=== PATIENT | female | born 1990 | race Caucasian/White ===

== ENCOUNTER 2020-10-13 21:18 | Emergency (ER) | payer OTHER ==
[~2020-10-13] VITALS: Ht 165.1 cm; Wt 81.6 kg
[2020-10-13] MEDS ORDERED: diphenhydrAMINE HCL 50 MG/ML VIAL ONE (21:38)
[2020-10-13] MEDS ORDERED: FAMOTIDINE/PF INJ 20 MG/2 ML VIAL IV ONE (21:38)
[2020-10-13] MEDS ORDERED: methylPREDNISolone SOD SUCC 125 MG/2ML VIAL ONE (21:38)
[2020-10-13] MEDS: methylPREDNISolone SOD SUCC 125 MG/2ML VIAL IV ONE (21:55)
[2020-10-13] MEDS: FAMOTIDINE/PF INJ 20 MG/2 ML VIAL IV ONE (21:55)
[2020-10-13] MEDS: diphenhydrAMINE HCL 50 MG/ML VIAL IV ONE (21:55)
[2020-10-13] MEDS ORDERED: EPIN0.3P3 IJ (22:30)
[2020-10-13] MEDS ORDERED: FAMO-131 PO (22:30)
[2020-10-13] MEDS ORDERED: PRED20TA PO (22:30)
[2020-10-13] MEDS ORDERED: DIPH25CA83 PO (22:30)
--- NOTE | 2020-10-13 22:35 | NUR ---
IV removed. Catheter intact and site benign. Pressure and 4x4 applied to site. No bleeding noted.
--- NOTE | 2020-10-13 22:35 | NUR ---
Patient discharged to home in stable condition. Written and verbal after care instructions given. Patient verbalizes understanding of instruction and RX.
[2020-10-13 22:36] VITALS: BP 131/76
== END 2020-10-13 22:39 | disposition home or self-care (01) ==
LOC: ER 21:21
DX: T78.40XA Allergy, unspecified, initial encounter (principal); X58.XXXA Exposure to other specified factors, initial encounter; Z98.890 Other specified postprocedural states; Z79.899 Other long term (current) drug therapy
CPT/HCPCS: 96374; 96375; 99284; J1200; J2930; J3490